=== PATIENT | female | born 2000 | race Caucasian/White ===

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

== ENCOUNTER 2020-06-27 08:00 | Inpatient (IN) ==
[2020-06-27] MEDS ORDERED: Naloxone 0.4 MG/ML INJ IVP PRN ×2 (08:13→13:08)
[2020-06-27] MEDS ORDERED: Lidocaine 1% 20 ML MDV INFILT PRN (08:13)
[2020-06-27] MEDS ORDERED: Azithromycin 500 MG in 0.9 % Sodium Chloride 250 ML IVPB PRN (08:13)
[2020-06-27] MEDS ORDERED: Famotidine 20 MG/2 ML VIAL IVP PRN (08:13)
[2020-06-27] MEDS ORDERED: *HR* FentaNYL (PF) 100 MCG/2 ML VIAL IVP PRN (08:13)
[2020-06-27] MEDS ORDERED: miSOPROStoL 25 MCG TABLET VG PRN (08:13)
[2020-06-27] MEDS ORDERED: Ondansetron 4 MG/2 ML VIAL IVP PRN ×2 (08:13→13:08)
[2020-06-27] MEDS ORDERED: Metoclopramide 10 MG/2 ML VIAL IVP PRN (08:13)
[2020-06-27 08:57] LABS: Basophils % 0.3 %; Eosinophils # 0.3 K/mcL (0.0-0.6); Eosinophils % 2.4 %; Hematocrit 33.7 % (35.3-44.9); Hemoglobin 11.4 g/dL (11.5-15.4); Immature Granulocytes % 0.7 % (0-4); Lymphocytes # 2.4 K/mcL (0.6-4.6); Lymphocytes % 20.2 %; Mean Corpuscular HGB Conc 33.8 g/dL (31.6-35.5); Mean Corpuscular Volume 94.7 fL (83.0-100.0); Mean Platelet Volume 10.1 fL (9.4-12.4); Monocytes # 1.1 K/mcL (0.0-1.3); Monocytes % 9.1 %; Neutrophils # 7.9 K/mcL (1.6-8.9); Platelet Count 285 K/mcL (140-400); Red Blood Count 3.56 M/mcL (3.82-4.97); Red Cell Distribution Width 13.2 % (11.5-14.5); Segmented Neutrophils % 67.3 %; White Blood Count 11.7 K/mcL (4.3-11.1)
[2020-06-27] MEDS ORDERED: miSOPROStoL 25 MCG TABLET PO PRN (09:08)
[2020-06-27] MEDS: Ringers Solution, Lactated 1,000 ML IVC SCH ×2 (09:16→13:53)
[2020-06-27] MEDS ORDERED: Oxytocin 20 units/ LR 1000 mL 20 UNIT/1,000 ML BAG IVC SCH (10:30)
[2020-06-27 10:55] LABS: Amphetamine Screen,Urine Negative ng/mL (Cutoff=1000); Barbiturate Screen,Urine Negative ng/mL (Cutoff=200); Benzodiazepines Screen,Urine Negative ng/mL (Cutoff=200); Cannabinoid Screen,Urine Negative ng/mL (Cutoff = 50); Cocaine Screen,Urine Negative ng/mL (Cutoff= 300); Opiate Screen,Urine Negative ng/mL (Cutoff=300); Phencyclidine Screen,Urine Negative ng/mL (Cutoff=25)
[2020-06-27] MEDS ORDERED: EPHEDrine 50 MG/ML VIAL IVP PRN (13:08)
[2020-06-27] MEDS ORDERED: Ropivacaine/PF 0.2% 20 ML VIAL EP ONE (13:08)
[2020-06-27] MEDS ORDERED: Epidural Premix (fent/bupiv) 110 ML EP SCH (13:15)
[2020-06-27] MEDS ORDERED: Ropivacaine/PF 0.2% 20 ML VIAL ONE (22:12)
[2020-06-28] MEDS ORDERED: Oxytocin 20 units/ LR 1000 mL 20 UNIT/1,000 ML BAG IVC SCH (00:27)
[2020-06-28] MEDS ORDERED: Acetaminophen 325 MG TABLET PO PRN (00:27)
[2020-06-28] MEDS ORDERED: Benzocaine/Menthol 56 GM AEROSOL SPRAY TP PRN (00:27)
[2020-06-28] MEDS ORDERED: *HR* HYDROcodone/Acet 5/325 mg TABLET PO PRN (00:27)
[2020-06-28] MEDS ORDERED: Lanolin 7 G OINT...G. TP PRN (00:27)
[2020-06-28] MEDS: Ibuprofen 600 MG TABLET PO PRN ×2 (03:00→15:56)
[2020-06-28 07:07] LABS: Basophils % 0.2 %; Hematocrit 27.5 % (35.3-44.9); Immature Granulocytes % 0.6 % (0-4); Lymphocytes # 1.2 K/mcL (0.6-4.6); Lymphocytes % 5.9 %; Mean Corpuscular HGB Conc 32.7 g/dL (31.6-35.5); Mean Corpuscular Hemoglobin 32.7 pg (28.0-33.3); Mean Platelet Volume 10.4 fL (9.4-12.4); Monocytes # 1.2 K/mcL (0.0-1.3); Monocytes % 5.7 %; Neutrophils # 17.6 K/mcL (1.6-8.9); Platelet Count 215 K/mcL (140-400); Red Blood Count 2.75 M/mcL (3.82-4.97); Red Cell Distribution Width 13.6 % (11.5-14.5); Segmented Neutrophils % 87.6 %
[2020-06-28 07:08] LABS: White Blood Count 20.1 K/mcL (4.3-11.1)
[2020-06-28] MEDS: Prenatal Vit/FA 1 EACH TABLET PO SCH (08:03)
[2020-06-29 07:54] VITALS: BP 124/73
[2020-06-29] MEDS: Prenatal Vit/FA 1 EACH TABLET PO SCH (08:10)
== END 2020-06-29 12:40 | disposition home or self-care (01) | DRG 560 ==
LOC: 1NENULAB 08:02 → 1NENUOBS 06-28 02:57
PROVIDERS: ADMIT Obstetrics & Gynecology; ATTEND Obstetrics & Gynecology